=== PATIENT | female | born 1970 | race Caucasian/White ===

== ENCOUNTER 2018-01-03 15:15 | Emergency (ER) | payer MEDICARE, MEDICAID ==
[2018-01-03] MEDS: methylPREDNISolone INJ 125 MG/2 ML VIAL (J2930) IV (16:38)
[2018-01-03] MEDS: IPRATROPIUM 0.5MG/ALBUTEROL 2.5MG INH SOL UD 3ML (DUONEB)(J7620) NEB (16:52)
== END 2018-01-03 17:38 | disposition home or self-care (01) ==
LOC: M ED 15:15
DX: J44.1 Chronic obstructive pulmonary disease with (acute) exacerbation (principal); J44.0 Chronic obstructive pulmonary disease with (acute) lower respiratory infection; J45.909 Unspecified asthma, uncomplicated; F17.200 Nicotine dependence, unspecified, uncomplicated; Z88.5 Allergy status to narcotic agent; Z91.040 Latex allergy status; Z79.51 Long term (current) use of inhaled steroids
CPT/HCPCS: J2930

== ENCOUNTER → 2019-02-16 | Outpatient (CLI) | payer MEDICARE, MEDICAID ==
[~2019-02-16] MED LIST: ADV500INH INH; AZIT-12 PO; PRED20TA PO; PROV108A INH; VENTAER INH
[2019-02-21 00:07] LABS: D001-IgE D pteronyssinus <0.10 kU/L (Class 0); E003-IGE HORSE EPITHELIA/DAND <0.10 kU/L (Class 0); E004-IGE COW DANDER <0.10 kU/L (Class 0); E005-IgE Dog Dander 1.48 kU/L (Class III); F002-IgE Milk < 0.10 kU/L (Class 0); F004-IgE Wheat < 0.10 kU/L (Class 0); F013-IgE Peanut < 0.10 kU/L (Class 0); F014-IgE Soybean < 0.10 kU/L (Class 0); F026-IgE Pork 0.84 kU/L (Class II); F027-IgE Beef < 0.10 kU/L (Class 0); F245-IgE Egg, Whole < 0.10 kU/L (Class 0); FX02-IgE Food Mix (Sea Foods) Negative (.); G002-IgE Bermuda Grass < 0.10 kU/L (Class 0); G008-IgE Kentucky Bluegrass < 0.10 kU/L (Class 0); M001-IgE Penicillium chrysogen < 0.10 kU/L (Class 0); M002 IgE Cladosporium herbaru < 0.10 kU/L (Class 0); M003 IgE Aspergillus fumigatu < 0.10 kU/L (Class 0); M006-IgE Alternaria alternata < 0.10 kU/L (Class 0); T001-IgE Maple/Box Elder < 0.10 kU/L (Class 0); T003-IgE Common Silver Birch 0.94 kU/L (Class II); T006-IgE Cedar, Mountain < 0.10 kU/L (Class 0); T007-IgE Oak, White 0.28 kU/L (Class 0/I); T008-IgE Elm, American < 0.10 kU/L (Class 0); T015-IgE Ash, White < 0.10 kU/L (Class 0); T041-IgE Hickory, White < 0.10 kU/L (Class 0); T070-IgE White Mulberry < 0.10 kU/L (Class 0); W001-IgE Ragweed, Short 1.51 kU/L (Class III); W009-IgE Plantain, English < 0.10 kU/L (Class 0); W014-IgE Pigweed, Rough < 0.10 kU/L (Class 0); W018-IgE Sheep Sorrel < 0.10 kU/L (Class 0)
== END ==
LOC: M LRY 15:23
PROVIDERS: ATTEND Allergy & Immunology
DX: J30.2 Other seasonal allergic rhinitis (principal); H10.45 Other chronic allergic conjunctivitis; L50.8 Other urticaria

== ENCOUNTER → 2020-03-15 | Outpatient (CLI) | payer MEDICARE, MEDICAID ==
--- NOTE | 2020-03-15 12:51 | REP ---
INDICATION: PAIN IN RIGHT HAND. COMPARISON: None. TECHNIQUE: Four views FINDINGS: There is advanced asymmetric joint space narrowing involving the distal interphalangeal joint of the 2nd digit with prominent marginal osteophytosis. More moderate joint space narrowing is seen involving the distal interphalangeal joint of the 3rd digit with more modest marginal osteophytosis. More mild joint space narrowing is seen involving all other joint spaces. There is no evidence of an acute fracture. IMPRESSION: Chronic changes as described above. <Electronically signed by Masoud Butcher > 03/15/20 [id number]
== END ==
LOC: M WUC 11:51
PROVIDERS: ATTEND Family Medicine
DX: Z00.00 Encounter for general adult medical examination without abnormal findings (principal); M79.641 Pain in right hand; M25.741 Osteophyte, right hand

== ENCOUNTER 2020-03-20 16:51 | Emergency (ER) | payer MEDICARE, MEDICAID ==
[~2020-03-20] VITALS: Ht 165.1 cm; Wt 60.1 kg
[2020-03-20] MEDS ORDERED: GABA600T4 (17:05)
[2020-03-20] MEDS ORDERED: CETI-24 (17:05)
[2020-03-20] MEDS ORDERED: MONT5TAB2 (17:05)
[2020-03-20] MEDS ORDERED: ISOVUE-370 76% 100ML VIAL As Ordered ONE (19:11)
--- NOTE | 2020-03-20 20:01 | REPVR ---
PROCEDURE INFORMATION: Exam: CT Abdomen And Pelvis With Contrast Exam date and time: 03/20/2020 7:09 PM Age: 50 years old Clinical indication: Injury or trauma; Fall; Blunt; Llq; Additional info: Fall with pain to L lower abd and hematuria TECHNIQUE: Imaging protocol: Computed tomography of the abdomen and pelvis with intravenous contrast. Radiation optimization: All CT scans at this facility use at least one of these dose optimization techniques: automated exposure control; mA and/or kV adjustment per patient size (includes targeted exams where dose is matched to clinical indication); or iterative reconstruction. Contrast material: ISOVUE 370; Contrast volume: 100 ml; Contrast route: INTRAVENOUS (IV); COMPARISON: No relevant prior studies available. FINDINGS: Liver: Normal. No mass. Gallbladder and bile ducts: Normal. No calcified stones. No ductal dilation. Pancreas: Normal. No ductal dilation. Spleen: Normal. No splenomegaly. Adrenal glands: Normal. No mass. Kidneys and ureters: Small bilateral renal cysts measuring up to 5 mm in the right kidney. No follow-up necessary. Extrarenal pelvis left kidney. Stomach and bowel: There is increased feces throughout the colon consistent with constipation. Appendix: No evidence of appendicitis. Intraperitoneal space: Unremarkable. No free air. No significant fluid collection. Vasculature: Unremarkable. No abdominal aortic aneurysm. Lymph nodes: Unremarkable. No enlarged lymph nodes. Urinary bladder: Unremarkable as visualized. Reproductive: Unremarkable as visualized. Bones/joints: Mild retrolisthesis of L2 on L3, L3 and L4 and slight anterolisthesis of L4 on L5. Moderate central spinal stenosis L2-L3, severe central spinal stenosis L4-L5. Posterior disc protrusion L5-S1 may impinge on the S1 nerve roots as they exit from the thecal sac. Status post transfixation of the right sacroiliac joint. Shallow dextroscoliosis. Soft tissues: Soft tissue mass measuring 1.8 x 6 x 3.5 cm demonstrated in the subcutaneous fat of the left buttock. Findings consistent with a posttraumatic hematoma. IMPRESSION: 1. Soft tissue mass demonstrated in the subcutaneous fat of the left buttock. Findings consistent with a posttraumatic hematoma. 2. There is increased feces throughout the colon consistent with constipation. 3. No significant abnormalities involving the urinary tract. COMMENTS: Consistent with the [employer]'s Incidental Findings Committee white paper (J [employer]iol 2018): Any incidental renal lesion less than 1 cm or classified as too small to characterize, or any incidental cystic renal lesion characterized as simple-appearing, is likely benign. No follow-up imaging is recommended for these lesions per consensus recommendations based on imaging criteria. Electronically signed by: Josh Solis On 03/20/2020 20:00:52 PM
[2020-03-20 20:17] VITALS: BP 107/59
== END 2020-03-20 20:32 | disposition home or self-care (01) ==
LOC: M ED 16:51
DX: S30.0XXA Contusion of lower back and pelvis, initial encounter (principal); W10.9XXA Fall (on) (from) unspecified stairs and steps, initial encounter; Y92.099 Unspecified place in other non-institutional residence as the place of occurrence of the external cause; Y93.9 Activity, unspecified; Y99.9 Unspecified external cause status; Z79.899 Other long term (current) drug therapy; Z91.030 Bee allergy status; Z91.040 Latex allergy status; Z88.5 Allergy status to narcotic agent
CPT/HCPCS: 74177; 80047; 81001; 87086; 99284; Q9967